=== PATIENT | female | born 1990 | race Caucasian/White ===

== ENCOUNTER 2020-12-10 12:48 | Emergency (ER) | payer BC ==
[2020-12-10] MEDS ORDERED: HYDROcodone/Acetaminophen 5/325 mg Tablet ONE (13:19)
[2020-12-10] MEDS ORDERED: Ibuprofen 800 MG TAB ONE (13:20)
== END 2020-12-10 13:49 | disposition home or self-care (01) ==
LOC: BURERS 12:48
DX: S93.401A Sprain of unspecified ligament of right ankle, initial encounter (principal); X50.1XXA Overexertion from prolonged static or awkward postures, initial encounter